=== PATIENT | female | born 1985 | race Two or more races ===

== ENCOUNTER 2018-04-30 23:51 | Emergency (ER) | payer OTHER ==
[2018-04-30 23:56] VITALS: BP 92/62
--- NOTE | 2018-05-01 00:12 | EDPHY ---
H & P Time Seen by Provider: 04/30/18 23:59 HPI/ROS: Chief complaint: Tooth injury History of present illness: This is a 32-year-old female who presents for tooth injury. Patient bit into a frozen cookie just prior to arrival. She displaced her right, superior central incisor anteriorly. Mild pain. She denies other injuries to the mouth. She is opening closing well. She has a normal bite. Smoking Status: Never smoked Physical Exam: General: Alert, nontoxic. Mouth: Her right, superior, central incisor is slightly displaced anteriorly. It does appear to be cracked in the back. However it is still implanted. The rest of the teeth are unremarkable. She is opening closing her mouth well. Skin: No abnormal skin lesions to the face. Constitutional: Initial Vital Signs Temperature (C) 36.9 C 04/30/18 23:52 Heart Rate 68 04/30/18 23:52 Respiratory Rate 16 04/30/18 23:52 Blood Pressure 92/62 L 04/30/18 23:52 O2 Sat (%) 97 04/30/18 23:52 O2 Delivery Mode Room Air Allergies/Adverse Reactions: No Known Allergies Allergy (Unverified 04/30/18 23:56) Home Medications: Medication Instructions Recorded Amoxicillin Trihydrate [Amoxil] 500 mg PO TID 5 Days cap 05/01/18 MDM/Departure - MDM Procedures: The superior central incisors were dried. A small gap of Dermabond was placed on the teeth to create a splinting bridge. No complications. Patient tolerated it well. Medications Given: Discontinued Medications Amoxicillin (Amoxicillin) 500 mg PO EDNOW ONE PRN Reason: Protocol Stop: 05/01/18 00:13 Last Admin: 05/01/18 00:17 Dose: Not Given ED Course/Re-evaluation: Patient is seen under the supervision of my secondary supervising physician Dr. Amari Kinney. Patient presents for a right tooth injury. She is nontoxic. The tooth is gently splinted with Dermabond. She is prescribed antibiotics. She is given referral information to a local dentist. I have discussed a liquid diet until seen by a dentist. Return precautions are given. - Depart Disposition: Home, Routine, Self-Care Clinical Impression: Tooth fracture Qualifiers: Encounter type: initial encounter Fracture type: open Qualified Code(s): S02.5XXB - Fracture of tooth (traumatic), initial encounter for open fracture Condition: Good Instructions: Acute Dental Trauma (ED) Additional Instructions: For follow-up with a dentist for continued evaluation and care Discussed with your dentist if you need to continue antibiotics If symptoms worsen or new symptoms develop return to the emergency room for recheck Prescriptions: Amoxicillin Trihydrate [Amoxil] 500 mg PO TID 5 Days cap Referrals: NONE *PRIMARY CARE P,. [Primary Care Provider] - As per Instructions Dental [facility] [Outside] - As per Instructions Dental [facility] [Outside] - As per Instructions [facility] [Outside] - As per Instructions [facility] [Outside] - As per Instructions [facility] [Outside] - As per Instructions
[2018-05-01] MEDS ORDERED: SKIN ADHESIVE (DERMABOND) 1 EACH TP ONE (00:16)
== END 2018-05-01 00:33 | disposition home or self-care (01) ==
DX: S02.5XXB Fracture of tooth (traumatic), initial encounter for open fracture (principal)